=== PATIENT | male | born 1970 | race Hispanic/Latino ===

== ENCOUNTER 2017-10-03 16:53 | Outpatient (RCR) | payer OTHER ==
[~2017-10-03 16:53] MED LIST: BUSPIRONE HCL5 MG PO; CELEXA20 MG PO; CYCLOBENZAPRINE5 MG; CYMBALTA30 MG PO; FELDENE20 MG; GABAPENTIN400 MG PO; IBUPROFEN400 MG PO; MIRTAZAPINE15 MG PO; NITROGLYCERIN0.4 MG SL; TRAMADOL HCL100 MG; TRAZODONE HCL50 MG PO; ZOLOFT100 MG; ZOLPIDEM TARTRA10 MG PO
== END 2017-10-30 ==
LOC: PT 16:53
PROVIDERS: ATTEND Specialist
DX: M25.512 Pain in left shoulder (principal); M25.612 Stiffness of left shoulder, not elsewhere classified; M62.81 Muscle weakness (generalized)

== ENCOUNTER 2018-03-29 12:11 | Observation (INO) | payer OTHER ==
[~2018-03-29] VITALS: Ht 170.2 cm; Wt 96.3 kg
[2018-03-29 12:40] LABS: BASOPHILS # (AUTO) 0.1 (0.0-0.1); BASOPHILS % 0.6 % (0.0-1.0); EOSINOPHILS # (AUTO) 0.2 (0.0-0.4); EOSINOPHILS % 1.8 % (0.0-6.0); HEMATOCRIT 41.8 % (38.2-49.6); HEMOGLOBIN 14.2 g/dL (14.0-18.0); LYMPHOCYTES # (AUTO) 1.7 (1.0-3.2); LYMPHOCYTES % 17.8 % (18.0-39.1); MEAN CORPUSCULAR HEMOGLOBIN 29.5 pg (28-32); MEAN CORPUSCULAR VOLUME 86.9 fL (81-99); MONOCYTES # (AUTO) 0.8 (0.2-0.8); MONOCYTES % 7.8 % (4.4-11.3); NEUTROPHILS # (AUTO) 6.9 (2.1-6.9); NEUTROPHILS % 71.6 % (38.7-80.0); PLATELET COUNT 263 x10e3/uL (140-360); RED BLOOD COUNT 4.81 x10e6/uL (4.3-5.7); RED CELL DISTRIBUTION WIDTH 15.2 % (11.7-14.4)
[2018-03-29 12:42] LABS: BILIRUBIN,URINE NEGATIVE (NEGATIVE); CLARITY,URINE CLEAR (CLEAR); COLOR,URINE YELLOW (YELLOW); KETONES,URINE NEGATIVE (NEGATIVE); LEUKOCYTE ESTERASE ,URINE NEGATIVE (NEGATIVE); NITRITE,URINE NEGATIVE (NEGATIVE); PROTEIN,URINE DIPSTICK NEGATIVE (NEGATIVE); URINE UROBILINOGEN 0.2 mg/dL (0.2 - 1)
[2018-03-29] MEDS ORDERED: ASPIRIN 81 MG CHEW TAB PO ONE ×2 (12:45→14:30)
[2018-03-29 12:49] LABS: INR 1.01; PROTHROMBIN TIME 12.5 seconds (11.9-14.5)
[2018-03-29 12:53] LABS: EPITHELIAL CELLS,URINE RARE /LPF
[2018-03-29 12:54] LABS: PARTIAL THROMBOPLASTIN TIME 34.4 seconds (23.8-35.5)
[2018-03-29 12:56] LABS: ALANINE AMINOTRANSFERASE 15 IU/L (0-55); ALBUMIN 3.5 g/dL (3.5-5.0); ALBUMIN/GLOBULIN RATIO 0.9 (0.8-2.0); ALKALINE PHOSPHATASE 67 IU/L (40-150); ANION GAP 10.9 mmol/L (8-16); BLOOD UREA NITROGEN 10 mg/dL (7-26); BUN/CREATININE RATIO 13 (6-25); CALCIUM 9.1 mg/dL (8.4-10.2); CARBON DIOXIDE 27 mmol/L (22-29); CHLORIDE 103 mmol/L (98-107); CREATINE KINASE 84 IU/L (30-200); CREATININE, SERUM 0.77 mg/dL (0.72-1.25); EST GLOMERULAR FILTRATION RATE > 60 ML/MIN (60-); GLUCOSE 83 mg/dL (74-118); POTASSIUM 3.9 mmol/L (3.5-5.1); SODIUM 137 mmol/L (136-145)
[2018-03-29] MEDS ORDERED: LIDOCAINE HCL 2% LOCAL INJ 5 ML SDV VIAL INJ ONE (13:39)
--- NOTE | 2018-03-29 13:58 | Diagnostic Imaging Report ---
PROCEDURE: A single AP view of the chest. COMPARISON: Patients [facility], DX, CHEST 2 VIEWS, 02/18/2016, 15:33. INDICATIONS: CHEST PAIN FINDINGS: Lines/tubes: None. Lungs: 4 mm nodular density again projected on the left upper lobe, either a calcified granuloma or a bone island. There is no evidence of pneumonia or pulmonary edema. Pleura: There is no pleural effusion or pneumothorax. Heart and mediastinum: The heart and the mediastinum are unremarkable. Bones: No acute bony abnormality. Lower cervical fusion hardware in observed. IMPRESSION: 1. No acute thoracic abnormality.. Mela Ibarra M.D. Dictated by: Mela Ibarra M.D. on 03/29/2018 at 14:00 Electronically approved by: Mela Ibarra M.D. on 03/29/2018 at 14:00
[2018-03-29] MEDS ORDERED: LIDOCAINE HCL 2% LOCAL 20 ML VIAL INJ ONE (14:00)
[2018-03-29] MEDS ORDERED: NITROGLYCERIN 0.4 MG SUBL SL PRN (14:30)
[2018-03-29] MEDS ORDERED: ONDANSETRON HCL INJ 2 MG/ML VIAL IV PRN (14:30)
[2018-03-29] MEDS ORDERED: SODIUM CHLORIDE FLUSH 10 ML SYR INJ PRN (14:30)
--- OUTSIDE RECORDS SUMMARY | 2018-03-29 14:42 | XMS REPORT | Clinical Summary ---
Author Author [facility] Address Unknown Phone Unavailable Care Team Providers Care Yard Jacker Name Role Phone Maylin Gutierrez DO PCP Unavailable Allergies No Known Allergies Current Medications Not on file Active Problems Not on file Encounters Date Type Specialty Care Team Description 05/20/2017 Hospital Radiology Maylin Gutierrez DO Cervical stenosis of Encounter spine 05/18/2017 Procedure Pass Radiology 05/18/2017 Ancillary Radiology Maylin Gutierrez DO Cervical stenosis of Orders spine after 03/28/2017 Social History Tobacco Use Types Packs/Day Years Used Date Never Assessed Sex Assigned at Date Recorded Not on file Last Filed Vital Signs Vital Sign Reading Time Taken Blood Pressure 115/59 05/20/2017 2:14 PM CDT Pulse 91 05/20/2017 2:14 PM CDT Temperature - - Respiratory Rate 20 05/20/2017 2:14 PM CDT Oxygen Saturation - - Inhaled Oxygen - - Concentration Weight 123 kg (272 lb) 05/20/2017 2:14 PM CDT Height 170.2 cm (5' 7") 05/20/2017 2:14 PM CDT Body Mass Index 42.6 05/20/2017 2:14 PM CDT Plan of Treatment Health Maintenance Due Date Last Done Comments COLON CANCER SCREENING 01/23/2018 SHINGRIX VACCINE (#1) 01/23/2018 INFLUENZA VACCINE 05/31/2018 Results * MRI Cervical Spine Wo Contrast (05/20/2017 3:16 PM) Specimen Performing Laboratory [facility] [address] [place] [address] Narrative EXAMINATION:MRI CERVICAL SPINE WO CONTRAST COMPARISON:None CLINICAL HISTORY: None spinal stenosis symptom There is anterior C5-6 and C6-7 fusion with grafts in the disc spaces and plate and screws anteriorly. 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 There is C4-5 degenerative disc change and mild spondylosis. At C3-4 there is a disc bulge which in combination with ligamentum flavum thickening results in gwge-in-vtpaxnom spinal stenosis. There are no disc protrusions. There is bilateral C4-5 neural foraminal narrowing. The cord is of normal size and contains no areas of abnormal signal intensity. The craniovertebral junction and visualized portion of the posterior fossa are normal. The bone marrow is normal. IMPRESSION: 1. 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 Bilateral C4-5 neural foraminal narrowing. [facility]-[id number] Procedure Note [facility], Radiology Results Incoming - 05/24/2017 9:43 AM CDT EXAMINATION: MRI CERVICAL SPINE WO CONTRAST COMPARISON: None CLINICAL HISTORY: None spinal stenosis symptom There is anterior C5-6 and C6-7 fusion with grafts in the disc spaces and plate and screws anteriorly. 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 There is C4-5 degenerative disc change and mild spondylosis. At C3-4 there is a disc bulge which in combination with ligamentum flavum thickening results in blkd-ue-iqgnaogx spinal stenosis. There are no disc protrusions. There is bilateral C4-5 neural foraminal narrowing. The cord is of normal size and contains no areas of abnormal signal intensity. The craniovertebral junction and visualized portion of the posterior fossa are normal. The bone marrow is normal. IMPRESSION: 1. 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 Bilateral C4-5 neural foraminal narrowing. [facility]-[id number] after 03/28/2017
--- OUTSIDE RECORDS SUMMARY | 2018-03-29 14:42 | XMS REPORT ---
Author Author [facility] Address Unknown Phone Unavailable Care Team Providers Care Insulation Foreman Name Role Phone LOUIS ABEBE Unavailable Unavailable ANA LILIA VANCE Unavailable Unavailable Problems This patient has no known problems. Allergies, Adverse Reactions, Alerts This patient has no known allergies or adverse reactions. Medications This patient has no known medications. Encounters Start Date/Time End Date/Time Encounter Type Admission Type Attending [facility] Care Department Encounter ID 2017-09-21 00:00:00 2017-09-21 00:00:00 Outpatient [facility] [id number] 2017-09-14 00:00:00 2017-09-14 00:00:00 Outpatient [facility] [id number] 2017-08-11 00:00:00 2017-08-11 00:00:00 Outpatient [facility] [id number] 2017-08-03 00:00:00 2017-08-03 00:00:00 Outpatient [facility] [id number] 2017-07-14 00:00:00 2017-07-14 00:00:00 Outpatient [facility] [id number] 2017-07-05 00:00:00 2017-07-05 00:00:00 Outpatient [facility] [id number] 2017-06-30 00:00:00 2017-06-30 00:00:00 Outpatient [facility] [id number] 2017-06-24 00:00:00 2017-06-24 00:00:00 Outpatient [facility] [id number] 2017-06-22 00:00:00 2017-06-22 00:00:00 Outpatient [facility] [id number] 2017-06-20 12:36:32 2017-06-20 12:36:32 Outpatient [facility] [id number] 2017-06-09 00:00:00 2017-06-09 00:00:00 Outpatient [facility] [id number] 2017-06-08 00:00:00 2017-06-08 00:00:00 Outpatient [facility] [id number] 2017-06-08 00:00:00 2017-06-08 00:00:00 Outpatient [facility] [id number] 2017-06-07 00:00:00 2017-06-07 00:00:00 Outpatient [facility] [id number] 2017-06-07 00:00:00 2017-06-07 00:00:00 Outpatient [facility] [id number] 2017-06-03 00:00:00 2017-06-03 00:00:00 Outpatient [facility] [id number] 2017-06-01 00:00:00 2017-06-01 00:00:00 Outpatient [facility] [id number] 2017-05-27 10:43:38 2017-05-27 10:43:38 Outpatient [facility] [id number] 2017-05-27 09:28:20 2017-05-27 09:28:20 Outpatient [facility] [id number] 2017-05-24 08:40:17 2017-05-24 08:40:17 Outpatient [facility] [id number] 2017-05-24 08:11:55 2017-05-24 08:11:55 Outpatient [facility] [id number] 2017-05-20 09:33:00 2017-05-20 09:33:00 Outpatient [facility] [id number] 2017-05-18 06:57:34 2017-05-18 06:57:34 Outpatient [facility] [id number] 2017-05-16 13:02:52 2017-05-16 13:02:52 Outpatient [facility] [id number] 2017-05-13 09:42:31 2017-05-13 09:42:31 Outpatient [facility] [id number] 2017-05-12 09:50:00 2017-05-12 09:50:00 Outpatient [facility] [id number] 2017-05-11 10:08:17 2017-05-11 10:08:17 Outpatient [facility] [id number] 2017-05-05 08:49:03 2017-05-05 08:49:03 Outpatient [facility] [id number] 2017-05-05 07:52:51 2017-05-05 07:52:51 Outpatient [facility] [id number] 2017-04-28 09:42:35 2017-04-28 09:42:35 Outpatient [facility] [id number] 2017-04-28 00:00:00 2017-04-28 00:00:00 Outpatient [facility] [id number] 2017-04-27 13:24:49 2017-04-27 13:24:49 Outpatient [facility] [id number] 2017-04-27 10:35:57 2017-04-27 10:35:57 Outpatient [facility] [id number] 2017-04-15 07:00:07 2017-04-15 07:00:07 Outpatient [facility] [id number] 2017-04-14 00:00:00 2017-04-14 00:00:00 Outpatient [facility] [id number] 2017-04-14 00:00:00 2017-04-14 00:00:00 Outpatient [facility] [id number] 2017-04-12 00:00:00 2017-04-12 00:00:00 Outpatient [facility] [id number] 2017-04-06 10:13:55 2017-04-06 10:13:55 Outpatient [facility] [id number] 2017-03-30 09:34:14 2017-03-30 09:34:14 Outpatient [facility] [id number] 2017-03-29 12:27:49 2017-03-29 12:27:49 Outpatient [facility] [id number] 2017-03-23 10:04:45 2017-03-23 10:04:45 Outpatient [facility] [id number] 2017-03-16 00:00:00 2017-03-16 00:00:00 Outpatient [facility] [id number] 2017-03-15 10:22:48 2017-03-15 10:22:48 Outpatient [facility] [id number] 2017-03-10 09:18:31 2017-03-10 09:18:31 Outpatient [facility] [id number] 2017-03-10 09:08:34 2017-03-10 09:08:34 Outpatient [facility] [id number] 2017-03-10 08:03:33 2017-03-10 08:03:33 Outpatient [facility] [id number] 2017-03-07 11:55:31 2017-03-07 11:55:31 Outpatient [facility] [id number] 2017-03-06 00:00:00 2017-03-06 00:00:00 Outpatient [facility] [id number] 2017-03-06 00:00:00 2017-03-06 00:00:00 Outpatient [facility] [id number] 2017-03-05 21:14:35 2017-03-05 21:14:35 Outpatient [facility] [id number] 2017-03-05 20:04:41 2017-03-05 20:04:41 Outpatient [facility] [id number] 2017-03-05 13:29:55 2017-03-05 13:29:55 Emergency [facility] [id number] 2017-03-05 10:26:43 2017-03-05 10:26:43 Outpatient [facility] [id number] 2017-03-05 00:00:00 2017-03-05 00:00:00 Outpatient [facility] [id number] 2017-03-04 22:21:02 2017-03-04 22:21:02 Emergency [facility] [id number] 2017-03-04 21:14:31 2017-03-04 21:14:31 Emergency [facility] [id number] 2017-03-01 11:48:33 2017-03-01 11:48:33 Outpatient [facility] [id number] 2017-02-25 08:32:15 2017-02-25 08:32:15 Outpatient [facility] [id number] 2017-01-19 14:31:08 2017-01-19 14:31:08 Outpatient [facility] [id number] 2017-01-18 12:27:25 2017-01-18 12:27:25 Outpatient [facility] [id number] 2017-01-13 11:03:24 2017-01-13 11:03:24 Outpatient [facility] [id number] 2017-01-10 14:49:10 2017-01-10 14:49:10 Outpatient [facility] [id number] 2016-12-29 09:48:10 2016-12-29 09:48:10 Outpatient [facility] [id number] 2016-12-29 08:47:55 2016-12-29 08:47:55 Outpatient [facility] [id number] Results Test Description Test Time Test Comments Text Results Atomic Results Result Comments CHEST SINGLE (PORTABLE) [place] [address] Patient Name: RIVAS TATE MR #: [id number] : 1970 Age/Sex: 48/M Req #: [id number] Adm Physician: Ordered by: SHARLENE BROWN INTERACTIVE MEDIA MARKETING SPECIALIST Report #: [id number] Location: ER Room/Bed: Procedure: [id number] DX/CHEST SINGLE (PORTABLE) Exam Date: 03/29/18 Exam Time: 1340 REPORT STATUS: Signed PROCEDURE: A single AP view of the chest. COMPARISON: [facility], , CHEST 2 VIEWS, 02/18/2016, 15:33. INDICATIONS: CHEST PAIN FINDINGS: Lines/tubes: None. Lungs: 4 mm nodular density again projected on the left upper lobe, either a calcified granuloma or a bone island. There is no evidence of pneumonia or pulmonary edema. Pleura: There is no pleural effusion or pneumothorax. Heart and mediastinum: The heart and the mediastinum are unremarkable. Bones: No acute bony abnormality. Lower cervical fusion hardware in observed. IMPRESSION: 1. No acute thoracic abnormality.. Mela Flynn M.D. Dictated by: Mela Flynn M.D. on 03/29/2018 at 14:00 Electronically approved by: Mela Flynn M.D. on 03/29/2018 at 14: 00 Dictated By: MATT FLYNN MD, MD 1400 Transcribed By: JESSI on 03/29/18 1400 COPY TO: SHARLENE BROWN INTERACTIVE MEDIA MARKETING SPECIALIST CT CERVICAL SPINE [place] [address] Patient Name: RIVAS TATE MR #: [id number] : 1970 Age/Sex: 47/M Req #: [id number] Adm Physician: Ordered by: ANA LILIA VANCE MD Report #: [id number] Location: ER Room/Bed: Procedure: [id number] CT/CT CERVICAL SPINE WO Exam Date: 09/14/17 Exam Time: 2104 REPORT STATUS: Signed History: Neck pain radiating down left upper extremity. Comparison studies: None Technique: Axial images were obtained through the cervical region.. Coronal and sagittal images reconstructed from the axial data.. Intravenous contrast: None Findings: Fractures: None. Soft tissue injuries: None. Atlantoaxial articulation: Intact. Alignment: Loss of normal cervical lordosis may be positional or due to muscle spasm. No scoliosis. Cervicomedullary junction: No abnormalities. The foramen magnum is patent. Soft tissues: No abnormalities. Vertebrae: Expected postoperative changes from anterior cervical spine fusion that extends from level C5-C7. The metallic hardware is intact. Suboptimal evaluation at this level due to metallic streak artifacts. No fractures, infection or neoplasm. Degenerative changes: C2-C3: Mild left foraminal stenosis due to facet arthrosis. C4-C5: Posterior disc osteophyte complex results in mild canal stenosis. Bilateral mild foraminal stenosis due to facet and uncovertebral arthrosis C5-C6: Posterior disc osteophyte complex results in mild canal stenosis. Bilateral moderate foraminal stenosis due to facet and uncovertebral arthrosis. C6-C7: Suboptimal evaluation due to streak artifacts , despite the limitation mild canal stenosis possibly due to disc osteophyte complex, not very well visualized. Mild right and moderate left foraminal stenosis due to facet and uncovertebral arthrosis. IMPRESSION: 1. No acute cervical spine fracture. Loss of normal cervical lordosis may be positional or due to muscle spasm. 2. Ligament, spinal cord and or vascular abnormalities cannot be excluded on the basis of this examination. 3. Expected postoperative changes from anterior cervical spine fusion from level C5-C7. 4. Cervical spondylosis as detailed above, though evaluation is suboptimal from level C5-C7 due to metallic streak artifacts. Signed by: Dr. Nikki Cassidy M.D. on 09/14/2017 9:40 PM Dictated By: NIKKI CASSIDY MD 39 Transcribed By: KEENAN on 09/14/172139 COPY TO: ANA LILIA VANCE MD SHOULDER LEFT COMPLETE [place] [address] Patient Name: RIVAS TATE MR #: [id number] : 1970 Age/Sex: 47/M Req #: [id number] Adm Physician: Ordered by: ANA LILIA VANCE MD Report #: [id number] Location: ER Room/Bed: Procedure: [id number] DX/SHOULDER LEFT COMPLETE Exam Date: 09/14/17 Exam Time: 2111 REPORT STATUS: Signed SHOULDER LEFT COMPLETE Comparison: None Clinical history: Shoulder pain Findings: 1.5 cm calcification in the region of the supraspinatus may be related to calcific tendinosis. Mild humeral osteophytosis and glenohumeral degenerative change. No acute fracture or dislocation. Partially imaged ACDF and probable left 2nd rib bone islands. Impression: No acute bony abnormality Findings which can be seen with supraspinatus calcific tendinosis. Signed by: Dr Bibi Ruiz MD on 09/14/2017 9:58 PM Dictated By: BIBI RUIZ MD 57 Transcribed By: KEENAN on 09/14/172157 COPY TO: ANA LILIA VANCE MD CT BRAIN WO [place] [address] Patient Name: RIVAS TATE MR #: [id number] : 1970 Age/Sex: 47/M Req # : [id number] [facility] Physician: Ordered by: LOUIS DANG MD Report #: [id number] Location: ER Room/Bed: Procedure: [id number] CT/CT BRAIN WO Exam Date: 09/14/17 Exam Time: 1913 REPORT STATUS: Signed EXAMINATION: Head CT without contrast. HISTORY:Numbness to left arm and face. COMPARISON:None. TECHNIQUE: Multidetector axial images were obtained from the foramen magnum to the vertex without contrast. The images were reconstructed using brain and bone algorithms. Thin section brain images were reformatted into coronal and sagittal planes. Intravenous contrast: None IMAGE QUALITY: Acceptable. FINDINGS: Skull/scalp: Nonspecific 3 mm hyperdense lesion in the right parietal scalp may represent foreign body or dystrophic calcification. No acute abnormality. Parenchyma: No abnormal density. No acute hemorrhage, mass or acute major vascular territorial infarct. Arteries: No density suggestive of thrombosis. Dural sinuses: No abnormal density suggestive of thrombosis. Ventricles: No hydrocephalus or displacement. Extra-axial spaces: No abnormal density. Brain volume: Normal for age. Craniocervical junction: No mass, Chiari malformation, or basilar invagination. Sella: No mass. Paranasal/ mastoid sinuses: Mild mucosal thickening in left maxillary sinus. IMPRESSION: No acute intracranial abnormality, particularly no acute hemorrhage, mass or acute major vascular territorial infarct. Signed by: Dr. Nikki Cassidy M.D. on 09/14/2017 7:55 PM Dictated By: NIKKI CASSIDY MD 54 Transcribed By: KEENAN on 09/14/171954 COPY TO: LOUIS DANG MD
[2018-03-29] MEDS ORDERED: IBUPROFEN 400 MG TAB PO ONE (14:55)
[2018-03-29] MEDS: FAMOTIDINE 20 MG TAB PO SCH (15:12)
[2018-03-29] MEDS ORDERED: LORAZEPAM INJ 2 MG/ML VIAL IV ONE (15:45)
[2018-03-29] MEDS ORDERED: ONDANSETRON HCL 4 MG ORAL DISINTEGRATING TAB PO PRN (15:45)
[2018-03-29] MEDS ORDERED: PREDNISONE 20 MG TAB PO ONE (15:45)
[2018-03-29 16:37] VITALS: BP 147/75
[2018-03-29 17:00] VITALS: BP 147/75
[2018-03-29] MEDS: TRIMETHOPRIM/SULFAMETHOXAZOLE 160-800 MG TAB PO SCH (17:35)
[2018-03-29] MEDS: ACETAMINOPHEN/CODEINE 300MG - 30MG TAB PO PRN (17:45)
--- NOTE | 2018-03-29 18:44 | Diagnostic Imaging Report ---
PROCEDURE:X-RAY LEFT SHOULDER, COMPLETE COMPARISON:[facility], DX, SHOULDER LEFT COMPLETE, 09/14/2017, 20:56. INDICATIONS:shoulder pain FINDINGS: There are no fractures, dislocations, lytic or blastic lesions. Degenerative changes of the glenohumeral joint with a moderate-sized inferior glenohumeral osteophyte again observed. Mild degenerative changes of the right a.c. joint. Specimens calcific tendinosis again noted, unchanged. Calcified granulomata projected on the left apex laterally. CONCLUSION: Degenerative osteoarthrosis of the glenohumeral and a.c. joints. Mela Ibarra M.D. Dictated by: Mela Ibarra M.D. on 03/29/2018 at 18:46 Electronically approved by: Mela Ibarra M.D. on 03/29/2018 at 18:46
[2018-03-29] MEDS: ALBUTEROL/IPRATROPIUM 3 ML NEB NEB SCH (18:55)
[2018-03-29 19:20] VITALS: BP 111/65
[2018-03-29 20:00] VITALS: BP 111/65
[2018-03-29 20:49] LABS: CREATINE KINASE 76 IU/L (30-200)
[2018-03-29] MEDS: LORAZEPAM INJ 2 MG/ML VIAL IV PRN (22:04)
[2018-03-30] VITALS: BP 125/70
[2018-03-30] MEDS: FAMOTIDINE 20 MG TAB PO SCH ×2 (02:35→16:05)
[2018-03-30 05:00] VITALS: BP 114/70
[2018-03-30] MEDS: ALBUTEROL/IPRATROPIUM 3 ML NEB NEB SCH ×3 (07:00→15:00)
[2018-03-30 07:06] LABS: CREATINE KINASE 66 IU/L (30-200)
[2018-03-30 07:31] VITALS: BP 121/67
[2018-03-30 07:31] LABS: CHOL/HDL RATIO 4.3 (3.9-4.7)
[2018-03-30] MEDS: LORAZEPAM INJ 2 MG/ML VIAL IV PRN (08:40)
[2018-03-30 09:00] VITALS: BP 121/67
[2018-03-30] MEDS ORDERED: ASPIRIN 81 MG ENTERIC COATED PO SCH (09:00)
[2018-03-30] MEDS: TRIMETHOPRIM/SULFAMETHOXAZOLE 160-800 MG TAB PO SCH (09:32)
[2018-03-30] MEDS: ACETAMINOPHEN/CODEINE 300MG - 30MG TAB PO PRN (09:42)
--- NOTE | 2018-03-30 10:05 | Discharge Summary ---
PRIMARY CARE DOCTOR: Dr. Maggie Irvin FINAL DIAGNOSIS: Noncardiac chest pain due to severe anxiety. SECONDARY DIAGNOSES: 1. Mild chronic obstructive pulmonary disease exacerbation, resolved. 2. Skin abscesses, status post incision and drainage in emergency room. 3. Old stroke. CONSULTANTS: Dr. Perez, psychiatry. PROCEDURES/STUDIES PERFORMED: None. HISTORY: Per [facility]. HOSPITAL COURSE: Patient was admitted. Troponins were negative x3, therefore there was no acute myocardial infarction. It was very clear that his chest pain is due to severe stress and severe anxiety. He also had mild COPD exacerbation. Patient received 1 dose of prednisone 20 mg x1. He also got nebulizer treatment and now he is not wheezing anymore. A chest x-ray was okay. Patient also had 2 soft tissue abscesses that were I and D'd in the emergency room. Patient will continue antibiotic that was prescribed by his PCP. Patient also has morbid obesity with sleep apnea. He uses CPAP at night. At this time, we are waiting for psychiatry to see him and to come up with a regimen for his anxiety to take at home. Patient also has severe left shoulder pain due to osteoarthritis on x-ray. His PCP has referred him to orthopedic doctor already as an outpatient. Patient was seen and examined today. CONDITION ON DISCHARGE: Stable. DISCHARGE MEDICATIONS: Please see medication reconciliation form. GRACY ALBERTS M.D. Job#: [id number] cc:MAGGIE IRVIN MD
[2018-03-30 11:25] VITALS: BP 131/85
[2018-03-30] MEDS ORDERED: CLONAZEPAM 0.5 MG TAB PO PRN (15:30)
[2018-03-30] MEDS ORDERED: SERTRALINE HCL 50 MG TAB PO SCH (15:30)
[2018-03-30 15:45] VITALS: BP 110/62
[2018-03-30] MEDS ORDERED: CLONAZEPAM 0.5 MG TAB PO ONE (15:45)
[2018-03-30] MEDS ORDERED: QUETIAPINE FUMARATE 25 MG TAB PO PRN (16:15)
--- NOTE | 2018-03-30 17:15 | Consultation ---
DATE OF CONSULTATION: March 30, 2018 PSYCHIATRIC CONSULTATION REASON FOR CONSULTATION: To evaluate patient's anxiety and depression. HISTORY OF PRESENTING ILLNESS: The patient is a 48-year-old male admitted to the hospital for chest pain. Psychiatric consultation is called to evaluate patient's mood. As per the medical record, patient has history of COPD, a skin abscess, history of stroke. Upon evaluation today, patient is found to be in the room with his ex-. He is alert, awake and oriented to situation. Patient states that he has been feeling very stressed and depressed due to his health and dementia problems. He also admits to feeling hopeless and helpless. He reports poor sleep and poor appetite although patient's BMI is 33. At this time patient denies . He denies any suicidal ideation. He denies any hallucination. His speech is somewhat rapid. Patient claims that he has history of overworked. He states at one point he was working 12 hours a day every day. He claims that he has been to inpatient psychiatry in the past but does not know the diagnosis. He wants something for his anxiety and his depression. Patient states that he does not want to go to inpatient psychiatry even if one is offered to him at this time due to wanting to go back to work and also being on the BiP[employer]. PAST PSYCHIATRIC HISTORY: Patient history of a stroke and anxiety. He attempted suicide once in the past. He denies alcohol and drug use. FAMILY HISTORY: He denies. SOCIAL HISTORY: Patient still lives with his ex-. MENTAL STATUS EXAMINATION: The patient is a middle-aged male who is alert, awake and oriented to situation. His mood is depressed and anxious with congruent affect. He denies any suicidal or homicidal ideation. He denies any hallucination. Thought process is concrete, and insight and judgment are intact. CURRENT MEDICATION 1. Albuterol. 2. Acetaminophen/codeine. 3. Bactrim. 4. Aspirin. 5. Ativan p.r.n. IV. 6. Sodium chloride. 7. Famotidine. 8. . 9. Ondansetron. CURRENT LAB: WBC 9.60, RBC 4.81, hemoglobin 14.2, hematocrit 41.8, platelets are 263. Chemistry: Sodium 135 and potassium 3.9, chloride 103, CO2 75, BUN 10. AST 14, ALT 15. Creatinine 0.77 ASSESSMENT: Major depressive disorder, recurrent, moderate; anxiety disorder; rule out bipolar. PLAN 1. Continue with Ativan p.r.n. IV. 2. Add Seroquel 25 mg p.o. q.6 h. p.r.n. 3. Add Zoloft 50 mg p.o. daily. 4. Add Klonopin 0.5 mg 3 times a day p.r.n. as patient states that the Ativan was not helping him as much. 5. Scripts were written for Klonopin and Zoloft for about 20 days. 6. Recommend patient to follow with outpatient psychiatry. 7. Supportive therapy. Thank you for this consultation, and patient is cleared from psychiatry standpoint, is to follow up with outpatient psychiatry. Dictated by: REGAN Cotto Job#: [id number]
== END 2018-03-30 17:51 | disposition home or self-care (01) ==
LOC: ER 12:11 → ERHOLD 14:39 → IMCU 15:50
PROVIDERS: ADMIT Internal Medicine; ATTEND Internal Medicine
DX: R07.89 Other chest pain (principal); L02.413 Cutaneous abscess of right upper limb; L02.415 Cutaneous abscess of right lower limb; F17.210 Nicotine dependence, cigarettes, uncomplicated; J44.1 Chronic obstructive pulmonary disease with (acute) exacerbation; F41.9 Anxiety disorder, unspecified; Z86.73 Personal history of transient ischemic attack (TIA), and cerebral infarction without residual deficits; E66.01 Morbid (severe) obesity due to excess calories; F33.1 Major depressive disorder, recurrent, moderate; Z68.33 Body mass index [BMI] 33.0-33.9, adult
CPT/HCPCS: 10060; 36415 ×2; 71045; 73030; 80053; 80061; 81001; 82550 ×2; 82553 ×2; 83880; 84484 ×2; 85025; 85610; 85730; 93005; 94640; 94660; 96374; 99284; G0378 ×2; J2001; J2060 ×2

== ENCOUNTER 2018-04-24 13:47 | Emergency (ER) | payer OTHER ==
[~2018-04-24] VITALS: Ht 170.2 cm; Wt 96.2 kg
--- OUTSIDE RECORDS SUMMARY | 2018-08-02 14:34 | XMS REPORT | Continuity of Care Document ---
Author Author [facility] Organization [facility] Address [address] [place] [address] Phone Unavailable Care Team Providers Care Food Handler Name Role Phone MAGGIE IRVIN PCP Insurance Providers Guarantor João Tate Address [address] [place] [address] Email PTDECLINED Payer [employer] Pos Policy Number [id number] Subscriber's Name João Tate Relationship 18 Self / Same As Patient Group Number [id number] Group Name Sonian Effective Date 17 Advance Directives Directive Response Recorded Date/Time Does the patient have an advance directive? No 03/29/18 4:56pm If yes, is advance directive on file with [facility]? No 03/29/18 4:56pm If not on file with [facility] will patient provide a copy? No 03/29/18 4:56pm Do you have a Directive to Physician? No 03/29/18 1:18pm Do you have a Medical Power of Genetics Physician? No 03/29/18 1:18pm Do you have an out of hospital Do Not Resuscitate Order? No 03/29/18 1:18pm Do you have any special needs we should be aware of? No 03/29/18 1:18pm Do you have a support person here with you today? Yes 03/29/18 1:18pm Did patient receive Notice of Privacy Practices? Yes 03/29/18 1:18pm Did patient receive patient rights and responsibilities? Yes 03/29/18 1:18pm Problems Medical Problem Onset Date Status Chest pain Unknown Medications Current Home Medications Medication Dose Units Route Directions Days Qty Instructions Start Date Buspirone Hcl 5 Mg Tablet 10 Mg Oral Twice A Day 60 Tab Cyclobenzaprine Hcl (Flexeril) 5 Mg Tablet 10 Duloxetine Hcl (Cymbalta) 30 Mg Capsule.dr 60 Mg Oral Daily 30 Cap Gabapentin 400 Mg Capsule 600 Mg Oral Twice A Day 30 Cap Ibuprofen 400 Mg Tablet 800 Mg Oral Every 8 Hours Nitroglycerin 0.4 Mg Tab.subl 0.4 Mg Sublingual Every 5 Minutes Piroxicam (Feldene) 20 Mg Capsule Tramadol Hcl 100 Mg Tab.er.24h 50 Trazodone Hcl 50 Mg Tablet 50 Mg Oral Daily 30 Tab Past Home Medications Medication Directions Ordered Status Citalopram Hydrobromide (Celexa) 20 Mg Tablet, 20 Mg Oral Every Morning Discontinued Mirtazapine 15 Mg Tab, 15 Mg Oral Daily Discontinued Sertraline Hcl (Zoloft) 100 Mg Tablet, Discontinued Zolpidem Tartrate 10 Mg Tablet, 10 Mg Oral Bedtime Discontinued Social History Social History Problem Response Recorded Date/Time Onset Date Status Hx Psychiatric Problems Yes 03/29/2018 4:56pm Not Applicable Not Applicable Hx Eating Disorder No 03/29/2018 4:56pm Not Applicable Not Applicable Hx Substance Use Disorder No 03/29/2018 4:56pm Not Applicable Not Applicable Hx Depression Yes 03/29/2018 4:56pm Not Applicable Not Applicable Hx Alcohol Use No 03/29/2018 4:56pm Not Applicable Not Applicable Hx Substance Use Treatment No 03/29/2018 4:56pm Not Applicable Not Applicable Hx Physical Abuse No 03/29/2018 4:56pm Not Applicable Not Applicable Smoking Status Start Date Stop Date Current every day smoker Hospital Discharge Instructions No hospital discharge instruction information available. Plan of Care Discharge Date 03/30/18 5:51pm Disposition HOME, SELF-CARE Instructions/Education Provided Generalized Anxiety Disorder Chest Pain - Chest Wall Prescriptions See Medication Section Additional Instructions/Education ACTIVITY TOLERATED RESUME LOW FAT LOW SALT DIET Functional Status Query Response Date Recorded Assistive Devices None March 29, 2018 5:00pm Ambulation Ability Independent March 29, 2018 5:00pm Toileting Ability Independent March 29, 2018 5:00pm Allergies, Adverse Reactions, Alerts No known allergies. Immunizations No immunization information available. Vital Signs Acute Vital Signs Vital Response Date/Time Temperature (Fahrenheit) 98.6 degrees F (97.6 - 99.5) 03/30/2018 3:45pm Pulse Pulse Rate (adult) 78 bpm (60 - 90) 03/30/2018 3:45pm Respiratory Rate 19 bpm (12 - 24) 03/30/2018 3:45pm Blood Pressure 110/62 mm Hg 03/30/2018 3:45pm Height 5 ft 7 in 03/29/2018 12:15pm Weight 212.38 lb 03/30/2018 12:00am Body Mass Index 33.3 kg/m^2 03/30/2018 11:59am Results Laboratory Results Test Name Result Units Flags Reference Collection Date/Time Result Date/ Time Comments White Blood Count 9.60 x10e3/uL 4.8-10.8 03/29/2018 12:22pm 03/29/2018 12:40pm Red Blood Count 4.81 x10e6/uL 4.3-5.7 03/29/2018 12:pm 03/29/2018 12: 40pm Hemoglobin 14.2 g/dL 14.0-18.0 03/29/2018 12:pm 03/29/2018 12:40pm Hematocrit 41.8 % 38.2-49.6 03/29/2018 12:pm 03/29/2018 12:40pm Mean Corpuscular Volume 86.9 fL 81-99 03/29/2018 12:pm 03/29/2018 12: 40pm Mean Corpuscular Hemoglobin 29.5 pg 28-32 03/29/2018 12:pm 2017 12:40pm Mean Corpuscular Hemoglobin Concent 34.0 g/dL 31-35 03/29/2018 12:pm 03/29/2018 12:40pm Red Cell Distribution Width 15.2 % H 11.7-14.4 03/29/2018 12:pm 2017 12:40pm Platelet Count 263 x10e3/uL 140-360 03/29/2018 12:pm 03/29/2018 12: 40pm Neutrophils (%) (Auto) 71.6 % 38.7-80.0 03/29/2018 12:pm 03/29/2018 12:40pm Lymphocytes (%) (Auto) 17.8 % L 18.0-39.1 03/29/2018 12:pm 03/29/2018 12:40pm Monocytes (%) (Auto) 7.8 % 4.4-11.3 03/29/2018 12:pm 03/29/2018 12: 40pm Eosinophils (%) (Auto) 1.8 % 0.0-6.0 03/29/2018 12:03/29/2018 12: 40pm Basophils (%) (Auto) 0.6 % 0.0-1.0 03/29/2018 12:03/29/2018 12: 40pm IM GRANULOCYTES % 0.4 % 0.0-1.0 03/29/2018 12:pm 03/29/2018 12:40pm Neutrophils # (Auto) 6.9 2.1-6.9 03/29/2018 12:pm 03/29/2018 12: 40pm Lymphocytes # (Auto) 1.7 1.0-3.2 03/29/2018 12:pm 03/29/2018 12: 40pm Monocytes # (Auto) 0.8 0.2-0.8 03/29/2018 12:pm 03/29/2018 12:40pm Eosinophils # (Auto) 0.2 0.0-0.4 03/29/2018 12:pm 03/29/2018 12: 40pm Basophils # (Auto) 0.1 0.0-0.1 03/29/2018 12:pm 03/29/2018 12:40pm Absolute Immature Granulocyte (auto 0.04 x10e3/uL 0-0.1 03/29/2018 12: pm 03/29/2018 12:40pm Prothrombin Time 12.5 seconds 11.9-14.5 03/29/2018 12:pm 03/29/2018 12:50pm Prothromb Time International Ratio 1.01 03/29/2018 12:pm 2017 12:50pm Oral Anticoagulant Therapy INR Values: 1. Low Intensity Therapy 1.5 - 2.0 2. Moderate Intensity Therapy 2.0 - 3.0 3. High Intensity Therapy(1) 2.5 - 3.5 4. High Intensity Therapy(2) 3.0 - 4.0 5. Panic Value INR > 5.0 Activated Partial Thromboplast Time 34.4 seconds 23.8-35.5 03/29/2018 12 :pm 03/29/2018 12:55pm Urine Color YELLOW YELLOW 03/29/2018 12:03/29/2018 12:42pm Urine Clarity CLEAR CLEAR 03/29/2018 12:03/29/2018 12:42pm Urine Specific Brandon 1.005 L 1.010-1.025 03/29/2018 12:pm 2017 12:42pm Urine pH 7 5 - 7 03/29/2018 12:03/29/2018 12:42pm Urine Leukocyte Esterase NEGATIVE NEGATIVE 03/29/2018 12:2017 12:42pm Urine Nitrite NEGATIVE NEGATIVE 03/29/2018 12:pm 03/29/2018 12: 42pm Urine Protein NEGATIVE NEGATIVE 03/29/2018 12:03/29/2018 12: 42pm Urine Glucose (UA) NEGATIVE NEGATIVE 03/29/2018 12:pm 03/29/2018 12 :42pm Urine Ketones NEGATIVE NEGATIVE 03/29/2018 12:03/29/2018 12: 42pm Urine Urobilinogen 0.2 mg/dL 0.2 - 1 03/29/2018 12:03/29/2018 12: 42pm Urine Bilirubin NEGATIVE NEGATIVE 03/29/2018 12:03/29/2018 12: 42pm Urine Blood NEGATIVE NEGATIVE 03/29/2018 12:03/29/2018 12:42pm Urine WBC NONE /HPF 0-5 03/29/2018 12:03/29/2018 12:53pm Urine RBC NONE /HPF 0-5 03/29/2018 12:03/29/2018 12:53pm Urine Bacteria NONE /HPF NONE 03/29/2018 12:03/29/2018 12:53pm Urine Epithelial Cells RARE /LPF NONE 03/29/2018 12:03/29/2018 12: 53pm Sodium Level 137 mmol/L 136-145 03/29/2018 12:03/29/2018 12:57pm Potassium Level 3.9 mmol/L 3.5-5.1 03/29/2018 12:03/29/2018 12: 57pm Chloride Level 103 mmol/L 98-107 03/29/2018 12:03/29/2018 12:57pm Carbon Dioxide Level 27 mmol/L 03/29/2018 12:03/29/2018 12: 57pm Anion Gap 10.9 mmol/L 8-03/29/2018 12:03/29/2018 12:57pm Blood Urea Nitrogen 10 mg/dL 05-2503/29/2018 12:03/29/2018 12: 57pm Creatinine 0.77 mg/dL 0.72-1.25 03/29/2018 12:03/29/2018 12:57pm BUN/Creatinine Ratio 13 04-2403/29/2018 12:03/29/2018 12:57pm Estimat Glomerular Filtration Rate > 60 ML/MIN 03/29/2018 12:03/29/2018 12:57pm Ranges were taken from the National Kidney Disease Education Program and the National Kid[employer] Foundation literature. Reference ranges: 60 or greater: Normal 16-59 (for 3 consecutive months): Chronic kidney disease 15 or less: Kidney failure Glucose Level 83 mg/dL 74-118 03/29/2018 12:03/29/2018 12:57pm Calcium Level 9.1 mg/dL 8.4-10.2 03/29/2018 12:03/29/2018 12:57pm Total Bilirubin 0.4 mg/dL 0.2-1.2 03/29/2018 12:03/29/2018 12: 57pm Aspartate Amino Transf (AST/SGOT) 14 IU/L 5-34 03/29/2018 12:03/29 12:57pm Alanine Aminotransferase (ALT/SGPT) 15 IU/L 0-55 03/29/2018 12: 12:57pm Total Protein 7.2 g/dL 6.5-8.1 03/29/2018 12:22pm 03/29/2018 12:57pm Albumin 3.5 g/dL 3.5-5.0 03/29/2018 12:22pm 03/29/2018 12:57pm Globulin 3.7 g/dL H 2.3-3.5 03/29/2018 12:22pm 03/29/2018 12:57pm Albumin/Globulin Ratio 0.9 0.8-2.0 03/29/2018 12:22pm 03/29/2018 12: 57pm Alkaline Phosphatase 67 IU/L 40-150 03/29/2018 12:22pm 03/29/2018 12: 57pm Triglycerides Level 80 MG/DL 0-149 03/30/2018 5:55am 03/30/2018 7:34am Cholesterol Level 199 MD/DL 0-199 03/30/2018 5:55am 03/30/2018 7:34am Less than 200 mg/dL Low Risk 201 - 239 mg/dL Borderline Risk 240 mg/dl and greater High Risk LDL Cholesterol 137 MG/DL H 60-130 03/30/2018 5:55am 03/30/2018 7:34am HDL Cholesterol 46 MG/DL 40-60 03/30/2018 5:55am 03/30/2018 7:34am Cholesterol/HDL Ratio 4.3 3.9-4.7 03/30/2018 5:55am 03/30/2018 7: 34am B-Type Natriuretic Peptide 14.1 pg/mL 0-100 03/29/2018 12:22pm 2017 1:01pm Creatine Kinase 66 IU/L 30-200 03/30/2018 5:55am 03/30/2018 7:08am Creatine Kinase MB 1.30 ng/mL 0-5.0 03/30/2018 5:55am 03/30/2018 7: 08am Troponin I < 0.001 ng/mL 0-0.300 03/30/2018 5:55am 03/30/2018 7:08am Procedures Procedure Status Date Provider(s) Computed tomography of brain without radiopaque contrast Active 09/14/17 LOUIS DANG MD Computed tomography of cervical spine without contrast Active 09/14/17 ANA LILIA VANCE MD Encounters Encounter Location Arrival/Admit Date Discharge/Depart Date Attending Provider Discharged Inpatient (obs) [facility] 03/29/18 2:39pm 5:51pm GRACY ALBERTS MD Discharged [facility]urring [facility] 10/03/17 4:53pm 10/30/17 11:59pm JAYSHREE LI MD Discharged [facility]ring [facility] 09/21/17 2:35pm 09/29/17 11:59pm JAYSHREE LI MD Departed Emergency Room [facility] 09/14/17 6:57pm 11:00pm ANA LILIA VANCE MD
--- OUTSIDE RECORDS SUMMARY | 2018-08-02 14:34 | XMS REPORT | Clinical Summary ---
Author Author [facility] Organization [facility] Address Unknown Phone Unavailable Care Team Providers Care Smoking Pipe Maker Name Role Phone Maylin Gutierrez DO PCP Allergies No Known Allergies Current Medications Not on file Active Problems Not on file Encounters Date Type Specialty Care Team Description 05/20/2017 Hospital Radiology Maylin Gutierrez DO Cervical stenosis of Encounter spine 05/18/2017 Procedure Pass Radiology 05/18/2017 Ancillary Radiology Maylin Gutierrez DO Cervical stenosis of Orders spine after 04/23/2017 Social History Tobacco Use Types Packs/Day Years [...] SHINGRIX VACCINE (#1) 01/23/2018 INFLUENZA VACCINE 05/31/2018 Procedures Procedure Name Priority Date/Time Associated Diagnosis Comments MRI CERVICAL SPINE WO Routine 05/20/2017 Cervical stenosis of Results for this CONTRAST 3:16 PM CDT spine procedure are in the results section. after 04/23/2017 Results * MRI Cervical Spine Wo Contrast (05/20/2017 3:16 PM) Narrative Performed At [facility] EXAMINATION: MRI CERVICAL SPINE WO CONTRAST COMPARISON: None CLINICAL HISTORY: None spinal stenosis symptom There is anterior C5-6 and C6-7 fusion with grafts in the disc spaces and plate and screws anteriorly. 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 There is C4-5 degenerative disc change and mild spondylosis. At C3-4 there is a disc bulge which in combination with ligamentum flavum thickening results in [id number] spinal stenosis. There are no disc protrusions. There is bilateral C4-5 neural foraminal narrowing. The cord is of normal size and contains no areas of abnormal signal intensity. The craniovertebral junction and visualized portion of the posterior fossa are normal. The bone marrow is normal. IMPRESSION: 1. 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 Bilateral C4-5 neural foraminal narrowing. [facility]-[id number] Procedure Note Interface, Radiology Results Incoming - 05/24/2017 9:43 AM [...] combination with ligamentum flavum thickening results in [id number] spinal stenosis. There are no disc protrusions. There is bilateral C4-5 neural foraminal narrowing. The cord is of normal size and contains no areas of abnormal signal intensity. The craniovertebral junction and visualized portion of the posterior fossa are normal. The bone marrow is normal. IMPRESSION: 1. 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 Bilateral C4-5 neural foraminal narrowing. [facility]-[id number] Performing Organization Address City/State/Zipcode Phone Number [facility] [address] [place] [address] after 04/23/2017
== END 2018-04-24 15:06 | disposition left against medical advice (07) ==
LOC: ER 13:47
DX: M25.512 Pain in left shoulder (principal)

== ENCOUNTER 2024-05-01 18:36 | Emergency (ER) | payer MEDICARE, OTHER ==
[~2024-05-01] VITALS: Ht 170.2 cm; Wt 103.9 kg
[2024-05-01 19:44] VITALS: TEMP 99
[2024-05-01 20:30] LABS: BASOPHILS # (AUTO) 0.1 (0.0-0.1); BASOPHILS % 0.6 % (0.0-1.0); EOSINOPHILS # (AUTO) 0.2 (0.0-0.4); EOSINOPHILS % 1.8 % (0.0-6.0); HEMATOCRIT 49.3 % (38.2-49.6); HEMOGLOBIN 16.1 g/dL (14.0-18.0); LYMPHOCYTES # (AUTO) 2.8 (1.0-3.2); MEAN CORPUSCULAR HEMOGLOBIN 28.9 pg (28-32); MEAN CORPUSCULAR HGB CONC 32.7 g/dL (31-35); MEAN CORPUSCULAR VOLUME 88.4 fL (81-99); MONOCYTES # (AUTO) 1.1 (0.2-0.8); MONOCYTES % 10.2 % (4.4-11.3); NEUTROPHILS # (AUTO) 6.5 (2.1-6.9); NEUTROPHILS % 61.1 % (38.7-80.0); PLATELET COUNT 242 x10e3/uL (140-360); RED BLOOD COUNT 5.58 x10e6/uL (4.3-5.7); RED CELL DISTRIBUTION WIDTH 15.5 % (11.7-14.4); WHITE BLOOD COUNT 10.63 x10e3/uL (4.8-10.8)
[2024-05-01] MEDS: SODIUM CHLORIDE 0.9% 1000ML 1,000 ML IV STA ×2 (20:46→22:13)
[2024-05-01 20:53] LABS: ALANINE AMINOTRANSFERASE 17 IU/L (0-55); ALKALINE PHOSPHATASE 75 IU/L (40-150); ANION GAP 17.3 mmol/L (8-16); BILIRUBIN,TOTAL 0.7 mg/dL (0.2-1.2); BLOOD UREA NITROGEN 15 mg/dL (7-26); BUN/CREATININE RATIO 19 (6-25); CALCIUM 8.9 mg/dL (8.4-10.2); CARBON DIOXIDE 25 mmol/L (22-29); CHLORIDE 103 mmol/L (98-107); CREATINE KINASE 167 IU/L (30-200); CREATININE, SERUM 0.78 mg/dL (0.72-1.25); EST GLOMERULAR FILTRATION RATE 105 ML/MIN (>=60); GLUCOSE 84 mg/dL (74-118); POTASSIUM 4.3 mmol/L (3.5-5.1); SODIUM 141 mmol/L (136-145); TOTAL PROTEIN 7.9 g/dL (6.5-8.1)
[2024-05-01 20:59] LABS: TROPONIN I < 0.001 ng/mL (0-0.300)
[2024-05-01 22:15] LABS: CLARITY,URINE CLEAR (CLEAR); COLOR,URINE YELLOW (YELLOW)
[2024-05-01 22:16] LABS: BILIRUBIN,URINE SMALL (NEGATIVE); GLUCOSE, URINE NEGATIVE (NEGATIVE); KETONES,URINE TRACE (NEGATIVE); LEUKOCYTE ESTERASE ,URINE NEGATIVE (NEGATIVE); NITRITE,URINE NEGATIVE (NEGATIVE); PH,URINE 5.5 (5 - 7); PROTEIN,URINE DIPSTICK 1+ (NEGATIVE); URINE UROBILINOGEN 1 mg/dL (0.2 - 1)
[2024-05-01 22:27] LABS: RBC,URINE 0-5 /HPF (0-5); WBC,URINE (MAN) 0-5 /HPF (0-5)
[2024-05-01 22:28] LABS: BACTERIA,URINE MODERATE /HPF; EPITHELIAL CELLS,URINE FEW /LPF
[2024-05-02 00:48] VITALS: PULSE 67; RESP 18; O2SAT 97
== END 2024-05-02 01:15 | disposition home or self-care (01) ==
LOC: ER 18:39
DX: R53.1 Weakness (principal); M19.012 Primary osteoarthritis, left shoulder; J44.9 Chronic obstructive pulmonary disease, unspecified; F41.9 Anxiety disorder, unspecified
CPT/HCPCS: 36415; 70450; 71045; 73030; 80053; 81001; 82550; 83880; 84484; 85025; 87400; 93005; 99284; J7030; U0002